=== PATIENT | male | born 1960 | race Caucasian/White ===

== ENCOUNTER 2020-07-12 20:20 | Emergency (ER) | payer OTHER ==
[~2020-07-12] VITALS: Ht 175.3 cm; Wt 113.4 kg
[2020-07-12] MEDS ORDERED: MOBIC7.5 MG PO (21:07)
[2020-07-12] MEDS ORDERED: PROSCAR5 MG PO (21:07)
--- NOTE | 2020-07-13 15:52 | EKG ---
[facility] [address] [place], [place] [address] Signed Normal sinus rhythm Low voltage QRS Septal infarct , age undetermined Abnormal ECG No previous ECGs available Confirmed by LENORA RIOJAS DO ([id number]) on 07/13/2020 3:52:48 PM Electronically Signed By: LENORA RIOJAS DO 07/13/20 1552 PATIENT NAME: TOMÁS ALDANA Electrocardiogram DATE OF : 64 PHYSICIAN: LENORA RIOJAS DO REPORT #: [id number] REPORT IS CONFIDENTIAL AND NOT TO BE RELEASED WITHOUT AUTHORIZATION
--- NOTE | 2020-07-13 15:53 | EKG ---
[facility] [address] [place], [place] [address] Signed Normal sinus rhythm Low voltage QRS Cannot rule out Anterior infarct (cited on or before 12-JUL-2020) Abnormal ECG When compared with ECG of 12-JUL-2020 20:25, (Unconfirmed) No significant change was found Confirmed by LENORA RIOJAS DO ([id number]) on 07/13/2020 3:53:26 PM Electronically Signed By: LENORA RIOJAS DO 07/13/20 1553 PATIENT NAME: TOMÁS ALDANA Electrocardiogram DATE OF : 64 PHYSICIAN: LENORA RIOJAS DO REPORT #: [id number] REPORT IS CONFIDENTIAL AND NOT TO BE RELEASED WITHOUT AUTHORIZATION
== END 2020-07-12 22:15 | disposition short-term general hospital (02) ==
LOC: ED 20:20
DX: I21.4 Non-ST elevation (NSTEMI) myocardial infarction (principal); Z20.822 Contact with and (suspected) exposure to COVID-19
CPT/HCPCS: 71045; 93005; 93010; 96374; 96375; 99285-25; C9803; J2270; J2405; U0003